=== PATIENT | female | born 1995 | race Caucasian/White ===

== ENCOUNTER 2017-01-20 10:00 | Emergency (ER) | payer OTHER ==
[2017-01-20] MEDS ORDERED: NS 0.9% 1000 ML* 1,000 ML IV ONE (10:06)
[2017-01-20] MEDS ORDERED: Metoclopramide IV* 5 MG/ML 2 ML VIAL IV ONE (10:49)
[2017-01-20] MEDS ORDERED: diPHENhydraMINE IV* 50 MG/ML 1 ml VIAL (BENADRYL) IV ONE (10:50)
[2017-01-20] MEDS ORDERED: Metoclopramide TAB* 10 MG PO ONE (12:15)
--- NOTE | 2017-01-20 12:36 | ED ---
Humera Lee Janilya, scribed for Cynthia Martinez MD on 01/20/17 at 1028 . - HPI Summary HPI Summary: A 21 y/o female came in to [facility] presenting w/ a gradual onset of constant right -sided WHITNEY starting last night at 1700. This morning at 0800 she also reports dizziness, nausea, weakness, visual anomalies. It feels like a typical migraine , but visual anomalies are new. She states she sees black and white, and sometimes "cannot see". Pt is 19 weeks ; 4th , normal , [place] normal. PMHx migraines. - History of Current Complaint Chief Complaint: EDDizziness Stated Complaint: 18WKS PREG/DIZZY Time Seen by Provider: 01/20/17 10:21 Hx Obtained From: Patient Onset/Duration: Started Days Ago, Atraumatic, Still Present Timing: Constant Severity: Moderate Current Severity: Moderate Pain Intensity: 0 Aggravating Factors: Nothing Alleviating Factors: Nothing Associated Signs and Symptoms: Positive: Nausea - Assessment SAB: 0 IEA: 0 - Additional Pertinent History Maternal Blood Type and Rh: A Positive - Allergies/Home Medications Allergies/Adverse Reactions: Allergies Allergy/AdvReac Type Severity Reaction Status Date / Time No Known Allergies Allergy Verified 01/20/17 10:01 PMH/Surg Hx/FS Hx/Imm Hx Previously Healthy: Yes Respiratory History: Reports: Hx Asthma Neurological History: Reports: Hx Migraine Infectious Disease History: No Infectious Disease History: Denies: Traveled Outside the [place] in Last 30 Days - Family History Known Family History: Negative: Hypertension, Diabetes - Social History Lives: With Family Alcohol Use: None Substance Use Type: Reports: None Smoking Status (MU): Never Smoked Tobacco Review of Systems Positive: Other - visual anomalies Positive: Nausea Neurological: Other - dizziness Positive: Headache, Weakness All Other Systems Reviewed And Are Negative: Yes Physical Exam - Physical Exam Triage Information Reviewed: Yes Vital Signs On Initial Exam: Vital Signs (72 hours) 01/20/17 10:01 Temperature 97.4 F Pulse Rate 67 Respiratory 16 Rate Blood Pressure 107/58 (mmHg) O2 Sat by Pulse 100 Oximetry Vital Signs Reviewed: Yes Appearance: Positive: Well-Appearing, No Pain Distress Skin: Positive: Warm, Skin Color Reflects Adequate Perfusion, Dry Eyes: Positive: EOMI, NOEMÍ ENT: Positive: Pharynx normal, TMs normal Neck: Positive: Supple, Nontender Respiratory/Lung Sounds: Positive: Clear to Auscultation, Breath Sounds Present. Negative: Rales, Rhonchi, Wheezes Cardiovascular: Positive: RRR. Negative: Murmur, Rub, Other - no gallops Abdomen Description: Positive: Nontender, Soft. Negative: Distended, Guarding, Other: - no rebound Bowel Sounds: Positive: Present Musculoskeletal: Positive: Strength/ROM Intact. Negative: Edema Left, Edema Right Neurological: Positive: Sensory/Motor Intact, Alert, Oriented to Person Place, Time, CN Intact II-III Psychiatric: Positive: Affect/Mood Appropriate - Ivan Coma Scale Eye: 4 - Spontaneous Motor: 6 - Obeys Commands Verbal: 5 - Oriented Coma Scale Total: 15 Diagnostics - Vital Signs Vital Signs Temp Pulse Resp BP Pulse Ox 01/20/17 10:01 97.4 F 67 16 107/58 100 - Laboratory Lab Statement: Any lab studies that have been ordered have been reviewed, and results considered in the medical decision making process. - EKG 1105 Cardiac Rate: NL - 71 bpm EKG Rhythm: Sinus Rhythm Course/Dx - Course Course Of Treatment: 21 yo female with hx of migraines, she had one that started last night and woke up this am with visual changes, and feeling dizzy. Her neuro exam including an nih stroke scale was zero. Case was discussed with Dr. Granger who agreed that she was safe to go home. He also suggested pindolol a beta ligia safe in that pt can use to keep her from getting migraines, if pt allows it will be prescribed from here. Pt has very difficult IV access and after 1 hour pt was reassessed and was feeling much better feeling she could just take po meds. These were given in the department. - Diagnoses Provider Diagnoses: Migraine - Provider Notifications Discussed Care Of Patient With: Dr. Molina (neurology) at 1220: discussed pt's cc Discharge - Discharge Plan Condition: Stable Disposition: HOME Referrals: Rony Cevallos, [facility] [Primary Care Provider] - The documentation as recorded by the Humera barnes Janilya accurately reflects the service I personally performed and the decisions made by me, Cynthia Martinez MD.
[2017-01-20 18:51] VITALS: BP 95/60
== END 2017-01-20 19:20 | disposition home or self-care (01) ==
LOC: ED 10:00
DX: G43.909 Migraine, unspecified, not intractable, without status migrainosus (principal); R11.0 Nausea; R42 Dizziness and giddiness; R53.1 Weakness
CPT/HCPCS: 93005; 96374; 96375; 99282; A9270-GY

== ENCOUNTER 2017-05-11 15:09 | Inpatient (IN) | payer OTHER ==
[2017-05-11] MEDS ORDERED: Betamethasone INJ* 6 MG/ML 5 ML VIAL (30 MG) IM ONE (15:38)
[2017-05-11] MEDS ORDERED: Lidocaine 1% MPF* 2 ML VIAL ONE (16:11)
[2017-05-11 16:34] LABS: Hematocrit 38 % (35-47); Hemoglobin 12.5 g/dl (12.0-16.0); Mean Corpuscular HGB Conc 33 g/dl (31-36); Mean Corpuscular Hemoglobin 31 pg (27-31); Mean Corpuscular Volume 94 fL (80-97); Mean Platelet Volume 9 um3 (7.4-10.4); Red Cell Distribution Width 14 % (10.5-15); White Blood Count 16.1 10^3/ul (3.5-10.8)
[2017-05-11 16:44] LABS: Urine Bilirubin Negative (Negative); Urine Glucose Negative (Negative); Urine Nitrite Negative (Negative)
[2017-05-11 16:46] LABS: Urine Bacteria Absent (Absent)
[2017-05-11] MEDS ORDERED: Zolpidem TAB* 5 MG PO ONE (21:38)
[2017-05-12] MEDS ORDERED: Acetaminophen TAB* 325 MG PO ONE (10:23)
[2017-05-12] MEDS ORDERED: Acetaminophen TAB* 325 MG ONE (10:32)
[2017-05-12] MEDS ORDERED: Betamethasone INJ* 6 MG/ML 5 ML VIAL (30 MG) IM ONE (15:00)
[2017-05-12] MEDS ORDERED: Zolpidem TAB* 5 MG PO PRN (19:26)
[2017-05-12] MEDS ORDERED: diPHENhydraMINE PO* 50 MG PO PRN (23:21)
[2017-05-12] MEDS ORDERED: diPHENhydraMINE PO* 50 MG ONE (23:29)
[2017-05-13] MEDS ORDERED: Oxytocin in LR* 20 UNITS/1,000 ML BAG IVPB ONE (08:58)
[2017-05-13] MEDS ORDERED: Glycerin ADULT SUPP PR PRN (09:03)
[2017-05-13] MEDS ORDERED: Witch Hazel PAD* JAR TOPICAL PRN (09:03)
[2017-05-13] MEDS ORDERED: Dibucaine 1% 28.35 GM TUBE PR PRN (09:03)
[2017-05-13] MEDS: Ibuprofen TAB* 600 MG PO PRN ×3 (09:19→22:10)
[2017-05-13] MEDS: Acetaminophen TAB* 325 MG PO PRN ×3 (09:56→18:10)
[2017-05-13] MEDS ORDERED: Oxytocin in LR* 20 UNITS/1,000 ML BAG IVPB SCH (10:00)
[2017-05-13] MEDS ORDERED: Simethicone CHEW TAB* 80 MG PO SCH (12:30)
[2017-05-13] MEDS: Docusate CAP* 100 MG PO SCH ×2 (14:13→22:10)
[2017-05-14] MEDS: Acetaminophen TAB* 325 MG PO PRN (01:29)
[2017-05-14] MEDS: Ibuprofen TAB* 600 MG PO PRN ×3 (04:15→19:44)
[2017-05-14 06:34] LABS: Hematocrit 33 % (35-47); Mean Corpuscular HGB Conc 33 g/dl (31-36); Mean Corpuscular Hemoglobin 32 pg (27-31); Mean Corpuscular Volume 95 fL (80-97); Mean Platelet Volume 9 um3 (7.4-10.4); Red Cell Distribution Width 15 % (10.5-15); White Blood Count 17.7 10^3/ul (3.5-10.8)
[2017-05-14] MEDS: Docusate CAP* 100 MG PO SCH ×3 (08:52→19:45)
[2017-05-14] MEDS ORDERED: Varicella Virus Vaccine Live* 0.5 ML VIAL SUBCUT ONE (09:00)
[2017-05-14] MEDS ORDERED: Ferrous Gluconate TAB* 324 MG TAB PO SCH (09:00)
[2017-05-15] MEDS: Ibuprofen TAB* 600 MG PO PRN ×2 (05:21→13:35)
[2017-05-15 07:55] VITALS: BP 105/60
[2017-05-15] MEDS: Docusate CAP* 100 MG PO SCH ×2 (09:28→13:35)
== END 2017-05-15 13:39 | disposition home or self-care (01) | DRG 560 ==
LOC: MCHOBOUT 15:09 → MCHOB 05-13 07:59
PROVIDERS: ADMIT Midwife; ATTEND Midwife
PROC: 10E0XZZ Delivery of Products of Conception, External Approach (ICD-10-PCS; principal; 2017-05-13)
PROC: 4A1HX4Z Monitoring of Products of Conception, Cardiac Electrical Activity, External Approach (ICD-10-PCS; 2017-05-13)
PROC: 10907ZC Drainage of Amniotic Fluid, Therapeutic from Products of Conception, Via Natural or Artificial Opening (ICD-10-PCS; 2017-05-13)
DX: O60.14X0 Preterm labor third trimester with preterm delivery third trimester, not applicable or unspecified (principal); Z37.0 Single live birth; Z3A.35 35 weeks gestation of pregnancy
CPT/HCPCS: 36415; 81003; 81015; 85025; 86850; 86900; 86901; 87086; 88307; A9270-GY; J0702